=== PATIENT | female | born 1945 | race American Indian/Alaskan Native ===

== ENCOUNTER 2019-07-13 05:56 | Day surgery (SDC) | payer MEDICARE ==
[2019-07-13] MEDS ORDERED: NACL 0.9% 1000 ML 1,000 ML IV SCH (07:00)
[2019-07-13] MEDS ORDERED: DIPRIVAN 10 MG/ML IV ONE ×2 (07:27)
[2019-07-13] MEDS ORDERED: XYLOCAINE 2% INFILTRATI ONE (07:28)
--- NOTE | 2019-07-13 07:45 | Anesthesia Day of Surgery ---
Anesthesia Day of Surgery - Day of Surgery Patient Examined: Yes Patient H&P Reviewed: Yes Patient is NPO: Yes
--- NOTE | 2019-07-13 07:49 | Anesthesia Consultation ---
Anesthesia Consult and Med Hx Date of service: 07/13/19 - Airway ROM Head & Neck: Adequate Mental/Hyoid Distance: Adequate Mallampati Class: Class II Intubation Access Assessment: Probably Good - Pulmonary Exam CTA: Yes - Cardiac Exam Cardiac Exam: RRR - Pre-Operative Health Status ASA Pre-Surgery Classification: ASA3 Proposed Anesthetic Plan: General, MAC - Cardiovascular System Hx Hypertension: Yes Hx Heart Attack/AMI: Yes - Gastrointestinal Hx Ulcer: No (s/p Gastric Bypass) - Endocrine Hx Renal Disease: Yes (h/o gout) Hx End Stage Renal Disease: Yes (s/p Kidney Transplant) Hx Non-Insulin Dependent Diabetes: Yes (Pre-Diabetes)
--- NOTE | 2019-07-13 07:53 | History and Physical Report ---
History of Present Illness Date of examination: 07/13/19 Chief complaint: EGD for weight loss History of present illness: 74 yo F with PMH of ESRD and gastric bypass (remote history) who presents for EGD for weight loss. Past History Past Medical History: other (gastric bypass, ESRD) Medications and Allergies Allergies Allergy/AdvReac Type Severity Reaction Status Date / Time heparin Allergy Intermediate Unknown Verified 08/05/18 13:50 Home Medications Medication Instructions Recorded Confirmed Last Taken Type Adult Low Dose Aspirin EC 81 mg PO DAILY 08/05/18 08/05/18 Unknown History Allopurinol 200 mg PO DAILY 08/05/18 08/05/18 08/05/18 History Ambien 5 mg PO PRN PRN 08/05/18 08/05/18 Unknown History Calcitriol (Nf) 0.5 mg PO DAILY 08/05/18 08/05/18 08/05/18 History Famotidine 20 mg PO DAILY 08/05/18 08/05/18 08/05/18 History Gabapentin 300 mg PO HS 08/05/18 08/05/18 08/05/18 History Hydroxychloroquine 300 mg PO DAILY 08/05/18 08/05/18 08/05/18 History Labetalol 300 mg PO DAILY 08/05/18 08/06/18 08/06/18 History Lipitor 10 mg PO HS 08/05/18 08/05/18 08/05/18 History Multiple Vitamins 1 tab PO DAILY 08/05/18 08/05/18 08/05/18 History Myfortic 360 mg PO BID 08/05/18 08/05/18 08/05/18 History Restasis 0.05% 1 drop OU DAILY 08/05/18 08/05/18 08/05/18 History Vitamin D2 2,000 units PO DAILY 08/05/18 08/05/18 08/05/18 History amLODIPine 10 mg PO DAILY 08/05/18 08/05/18 08/05/18 History predniSONE 5 mg PO DAILY 08/05/18 08/05/18 08/05/18 History Active Meds: Active Medications Sodium Chloride (Nacl 0.9% 1000 Ml) 1,000 mls @ 50 mls/hr IV DIRECT GERBER Last Admin: 07/13/19 07:48 Dose: 50 mls/hr Documented by: Exam - Constitutional Vitals: Temp Pulse Resp BP Pulse Ox 97.7 F 71 15 154/78 97 07/13/19 07:30 07/13/19 07:30 07/13/19 07:30 07/13/19 07:30 07/13/19 07:30 General appearance: Present: no acute distress - EENT Eyes: Present: EOM intact - Neck Neck: Present: supple - Respiratory Respiratory effort: normal - Cardiovascular Rhythm: regular Assessment and Plan Ms. Khurram Lorenzo is a 74 yo F with PMH of ESRD and gastric bypass who presents for EGD for weight loss. - risks and benefits of procedure explained to pt. - proceed with EGD
[2019-07-13] MEDS ORDERED: KETAMINE 50 MG/ML-WATER SYRING ONE (07:54)
[2019-07-13] MEDS ORDERED: WATER FOR IRRIG STERILE IR ONE (07:57)
--- NOTE | 2019-07-13 08:36 | Post Anesthesia Evaluation ---
- Post Anesthesia Evaluation Patient Participated: Yes Airway Patent: Yes Stable Respiratory Function: Yes Nausea/Vomiting: No Temp > 96.8F: Yes Pain Manageable: Yes Adequeate Hydration: Yes Anesthesia Complications: No Block Receding Appropriately: Not Applicable Patient on Ventilator: No
[2019-07-13 08:48] VITALS: BP 145/73
== END 2019-07-13 05:57 | disposition home or self-care (01) ==
LOC: GIO 05:56
PROVIDERS: ATTEND Internal Medicine Gastroenterology
DX: K29.50 Unspecified chronic gastritis without bleeding (principal); R63.4 Abnormal weight loss; I12.0 Hypertensive chronic kidney disease with stage 5 chronic kidney disease or end stage renal disease; E11.22 Type 2 diabetes mellitus with diabetic chronic kidney disease; N18.6 End stage renal disease; M19.90 Unspecified osteoarthritis, unspecified site; E78.00 Pure hypercholesterolemia, unspecified; Z90.710 Acquired absence of both cervix and uterus; Z99.2 Dependence on renal dialysis; Z88.8 Allergy status to other drugs, medicaments and biological substances; Z79.899 Other long term (current) drug therapy; Z98.41 Cataract extraction status, right eye; Z98.42 Cataract extraction status, left eye; Z94.0 Kidney transplant status; Z98.890 Other specified postprocedural states; Z86.718 Personal history of other venous thrombosis and embolism
CPT/HCPCS: 43239; 82962; 88305; 88312; 88342; J2704; J7030